=== PATIENT | female | born 1980 | race Caucasian/White ===

== ENCOUNTER 2021-05-03 11:53 | Outpatient (CLI) | payer OTHER, SELFPAY ==
--- NOTE | ~2021-05-03 | CT_ITS ---
EXAMINATION: CT hand RT wo con DATE: 05/03/2021 12:34 INDICATION: Fracture at the base of the right fifth metacarpal TECHNIQUE: High resolution computed tomography (CT) of the right hand was performed without intraveno us contrast. Additional sagittal and coronal reconstructions were performed. Automated exposure contr ol and iterative reconstruction technique were employed. The dose-length product was 435.86 mGy-cm. COMPARISON: None FINDINGS: Eleni displaced intra-articular fracture at the radial/palmar base of the right fifth metacarpal. The re is juxtaposed impaction fracture at the dorsal/ulnar side of the articular surface of the hamate. This includes approximately 1-2 mm punch type depression of a 3 x 4 mm fragment of the articular cortex. Bone alignment in the right hand is otherwise normal. No other fractures identified. 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 Soft tissues ar e unremarkable. IMPRESSION: 1. Nondisplaced intra-articular fracture at the base of the right fifth metacarpal. 2. Juxtaposed impaction fracture with mild punch type depression of a small fragment at the ulnar side of the distal articular surface of the hamate. Reviewed, dictated and finalized at location A. IMPRESSION: 1. Nondisplaced intra-articular fracture at the base of the right fifth metacar pal. 2. Juxtaposed impaction fracture with mild punch type depression of a small fragment at the ulnar side of the distal articular surface of the hamate.
== END 2021-05-03 11:54 | disposition home or self-care (01) ==
DX: S62.91XD Unspecified fracture of right hand, subsequent encounter for fracture with routine healing (principal)
CPT/HCPCS: 73200